=== PATIENT | female | born 1990 | race Caucasian/White ===

== ENCOUNTER 2016-11-29 20:10 | Emergency (ER) | payer OTHER ==
[~2016-11-29] VITALS: Ht 157.5 cm; Wt 90.7 kg
[2016-11-29 20:23] VITALS: BP 128/80
[2016-11-29] MEDS ORDERED: ALL DAY ALLERGY10 MG PO (21:02)
[2016-11-29] MEDS ORDERED: MIRENA1 EACH (21:02)
--- NOTE | 2016-11-29 21:03 | ED SKIN/ALLERGY COMPLAINT ---
History of Present Illness General Chief Complaint: General Adult Stated Complaint: PT IS HAVING AREACTION TOSOMETHING Source: patient, family, old records Exam Limitations: no limitations Vital Signs & Intake/Output Vital Signs & Intake/Output Vital Signs Date Time Temp Pulse Resp B/P Pulse O2 O2 Flow FiO2 Ox Delivery Rate 11/29 2022 98.1 98 18 128/80 98 Room Air Allergies Coded Allergies: Pertussis Vaccines (Severe, SEIZURE 11/29/16) nickel (Mild, ITCHING 11/29/16) lamotrigine (From LAMICTAL) (FACIAL RASH 11/29/16) lithium (HAND TREMORS 11/29/16) Reconcile Medications Cetirizine HCl (All Day Allergy) 10 MG TABLET 1 TAB PO DAILY ALLERGIES ( Reported) Famotidine (Pepcid) 20 MG TABLET 1 TAB PO BID allergy Hydroxyzine HCl 25 MG TABLET 1-2 TAB PO Q6P PRN itchy rash Levonorgestrel (Mirena) 20 MCG/24 HOUR (5 YEARS) IUD CONTROL (Reported) Prednisone 20 MG TABLET 1 TAB PO BID allergy Triage Note: PT STATES THAT SHE HAS HAD REDNESS AND RASH TO HER FACE AND NECK SINCE LAST PM, DENIES SOB , STATES THAT SHE USED A NEW PRODUCT ON HER HAIR BUT ALSO USED AN APOXY GLUE LAST PM. REDNESS STARTED AT MIDNIGHT. Triage Nurses Notes Reviewed? yes Onset: Evening Duration: hour(s):, constant, continues in ED Timing: recent history Severity: severe Location: face, torso Possible Factors: exposure to allergen No Modifying Factors: none Associated Symptoms: blisters, change in skin texture, edema, sore throat LMP (ages 10-50): unknown : No Patient currently breastfeeds: No HPI: 1 day prior to admission patient was working with epoxy and use new hair conditioner later developing red rash to face anterior upper chest. She denies fever chills nausea vomiting diarrhea abdominal pain chest pain shortness of breath headache dysuria bleeding soap shampoo detergent clothes Past History Travel History Traveled to [place] past 21 day No Medical History Any Pertinent Medical History? see below for history Neurological: NONE EENT: allergies Cardiovascular: NONE Respiratory: asthma Gastrointestinal: NONE Hepatic: NONE Renal: NONE Musculoskeletal: NONE Psychiatric: NONE Endocrine: NONE Blood Disorders: NONE Cancer(s): NONE BIN PILER/Reproductive: NONE Surgical History Surgical History: non-contributory Psychosocial History What is your primary language Greenlandic Tobacco Use: Never used ETOH Use: denies use Illicit Drug Use: denies illicit drug use Family History Hx Contributory? No Review of Systems Review of Systems Constitutional: Reports: no symptoms. EENTM: Reports: no symptoms. Respiratory: Reports: no symptoms. Cardiovascular: Reports: no symptoms. GI: Reports: no symptoms. Genitourinary: Reports: no symptoms. Musculoskeletal: Reports: no symptoms. Skin: Reports: see HPI, rash. Neurological/Psychological: Reports: no symptoms. Hematologic/Endocrine: Reports: no symptoms. Immunologic/Allergic: Reports: no symptoms. All Other Systems: Reviewed and Negative Physical Exam Physical Exam General Appearance: well developed/nourished, alert, awake, anxious, mild distress Head: atraumatic, normal appearance Eyes: Bilateral: normal appearance, PERRL, EOMI. Ears, Nose, Throat: normal pharynx, normal ENT inspection, hearing grossly normal Neck: normal inspection, supple Respiratory: normal breath sounds Cardiovascular: regular rate/rhythm Peripheral Pulses: 4+ carotid (R), 4+ carotid (L) Gastrointestinal: normal bowel sounds, soft, non-tender, no organomegaly Back: normal inspection, normal range of motion, no vertebral tenderness Extremities: normal inspection, normal capillary refill, normal range of motion, no edema Neurologic/Psych: awake, alert, oriented x 3, normal mood/affect Reflexes: 2+: bicep (R), bicep (L). Skin: intact, rash Skin Problem Location: face, torso Skin Problem Character: erythema, papules, patchy, rash Lymphatic: no anterior cervical christianne Progress Differential Diagnosis: abscess/cellulitis, allergic reaction, contact dermatitis, urticaria Plan of Care: Current Medications Sig/Anum Start time Last Medication Dose Stop Time Status Admin Famotidine 20 MG ONCE ONE 11/29 2114 UNVr (Pepcid) 11/29 2115 Hydroxyzine HCl 50 MG ONCE ONE 11/29 2114 UNVr (Atarax) 11/29 2115 Prednisone 60 MG ONCE ONE 11/29 2114 UNVr 11/29 2115 Departure Departure Time of Disposition: 2100 Disposition: HOME OR SELF CARE Condition: Stable Clinical Impression Primary Impression: Contact dermatitis due to adhesives Qualifiers: Contact dermatitis type: allergic Qualified Code: L23.1 - Allergic contact dermatitis due to adhesives Referrals: PATIENT HAS NO PRIMARY CARE DR (PCP/Family) Departure Forms: Customer Survey General Discharge Information Prescriptions: Current Visit Scripts Prednisone 1 TAB PO BID #10 TAB Hydroxyzine HCl 1-2 TAB PO Q6P PRN itchy rash #30 TAB Ref 1 Famotidine (Pepcid) 1 TAB PO BID #10 TAB
[2016-11-29] MEDS ORDERED: PEPCID20 M1 PO (21:04)
[2016-11-29] MEDS ORDERED: PREDNISONE20 M1 PO (21:04)
[2016-11-29] MEDS ORDERED: HYDROXYZINE HCL25 M2 PO (21:04)
== END 2016-11-29 21:16 ==
LOC: ERH 20:10
DX: L23.1 Allergic contact dermatitis due to adhesives (principal)